=== PATIENT | female | born 1980 | race African-American/Black ===

== ENCOUNTER 2016-10-22 14:06 | Emergency (ER) | payer OTHER ==
[2016-10-22 14:17] VITALS: BP 102/60; PULSE 75; TEMP 98.1
[2016-10-22] MEDS ORDERED: IBUPROFEN 600 MG TABLET (FP) PO ONE ×2 (15:09→15:12)
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
== END 2016-10-22 15:57 | disposition home or self-care (01) ==
LOC: JERFT 14:06
DX: T14.8 Other injury of unspecified body region (principal); V43.52XA Car driver injured in collision with other type car in traffic accident, initial encounter; Y93.89 Activity, other specified; Y92.410 Unspecified street and highway as the place of occurrence of the external cause
CPT/HCPCS: 99281-25

== ENCOUNTER 2017-01-21 10:17 | Emergency (ER) | payer OTHER ==
[2017-01-21 10:25] VITALS: BP 113/63; PULSE 89; TEMP 97.9; BMI 21.6
--- NOTE | 2017-01-21 12:01 | PDOC ---
History of Present Illness - General Chief Complaint: Cold Symptoms Stated Complaint: RESPIRATORY Time Seen by Provider: 01/21/17 10:57 History Source: Patient Exam Limitations: No Limitations - History of Present Illness Initial Comments: 01/21/17 12:09 Chief complaint: Nasal congestion with runny nose History of present illness: Patient is a 36-year-old female with no significant medical history here today complaining of severe nasal congestion with clear rhinorrhea for the last few days. Patient denies any fever, any sore throat, postnasal drip, or any cough. Patient has been using qoyh-ttt-yzguwyl medication for nasal congestion without relief Advil sinus and con RX out relief of symptoms. Patient denies any recent travel. Patient denies any sick contacts with similar symptoms. Timing/Duration: getting worse Severity: severe (nasal congestion) Past History - Past Medical History Allergies/Adverse Reactions: Allergies Allergy/AdvReac Type Severity Reaction Status Date / Time No Known Allergies Allergy Verified 01/21/17 10:24 Home Medications: Ambulatory Orders Fluticasone Propionate [Flonase Allergy Relief] 2 spray NS DAILY #1 spray.susp 01/21/17 Pseudoephedrine HCl [Sudafed 12 Hour] 120 mg PO Q12H PRN #20 tablet.er 01/21/17 Asthma: No Cancer: No Cardiac Disorders: No COPD: No Diabetes: No HTN: No Seizures: No Thyroid Disease: No Other medical history: denies - Suicide/Smoking/Psychosocial Hx Smoking Status: Yes Smoking History: Never smoked Number of Cigarettes Smoked Daily: 2 Information on smoking cessation initiated: Yes 'Breaking Loose' booklet given: 01/21/17 Hx Alcohol Use: No Drug/Substance Use Hx: No Substance Use Type: None Hx Substance Use Treatment: No Review of Systems - Review of Systems Able to Perform ROS?: Yes Constitutional: No: Symptoms Reported HEENTM: Yes: Nose Congestion (b/l ) Respiratory: No: Symptoms reported Cardiac (ROS): No: Symptoms Reported ABD/GI: No: Symptoms Reported : No: Symptoms Reported Musculoskeletal: No: Symptoms Reported Integumentary: No: Symptoms Reported Neurological: No: Symptoms reported *Physical Exam - Vital Signs Last Vital Signs Temp Pulse Resp BP Pulse Ox 97.9 F 89 18 113/63 100 01/21/17 10:23 01/21/17 10:23 01/21/17 10:23 01/21/17 10:23 01/21/17 10:23 - Physical Exam General Appearance: Yes: Appropriately Dressed HEENT: positive: TMs Normal, Nasal Congestion (superior turbinate edema b/l ), Rhinorrhea (clear ). negative: Sinus Tenderness Neck: negative: Lymphadenopathy (R), Lymphadenopathy (L) Respiratory/Chest: positive: Lungs Clear, Normal Breath Sounds. negative: Chest Tender, Respiratory Distress Cardiovascular: positive: Regular Rhythm, Regular Rate, S1, S2 Integumentary: positive: Normal Color Neurologic: positive: Alert Medical Decision Making - Medical Decision Making 01/21/17 12:11 Patient is a 36-year-old female with no significant medical history here today complaining of severe nasal congestion with clear rhinorrhea for the last few days. Patient denies any fever, any sore throat, postnasal drip, or any cough. Patient has been using eckr-ywv-vlzxorm medication for nasal congestion without relief Advil sinus and con RX out relief of symptoms. Patient denies any recent travel. Patient denies any sick contacts with similar symptoms. She reports that she gets nasal congestion generally at the end of November not in January in the past due to seasonal allergies. Severe nasal congestion PLAN: Sudafed 12 hrs 1 tab q 12 hr prn nasal congestion flonase 2 sprays each nostril daily follow up with Dr. Pierre *DC/Admit/Observation/Transfer Diagnosis at time of Disposition: Nasal congestion - Discharge Dispostion Disposition: HOME Condition at time of disposition: Stable - Referrals Referrals: Bina Anderson MD [Primary Care Provider] - Jose Guadalupe Pierre MD [Staff Physician] - - Patient Instructions Additional Instructions: You may put towel over head stand over her sink turn on hot water breathing in moist warm air Follow up with ear nose and throat Dr. Pierre if symptoms worsen or return to emergency room if any symptoms worsen or new symptoms develop any fever or sinus pain Patient voiced understanding of discharge instructions and all questions were answered and thank you for choosing [facility] emergency room for your medical needs today - Post Discharge Activity
== END 2017-01-21 12:21 | disposition home or self-care (01) ==
LOC: JERFT 10:17
DX: J34.89 Other specified disorders of nose and nasal sinuses (principal)
CPT/HCPCS: 99281-25

== ENCOUNTER 2017-08-02 09:32 | Emergency (ER) | payer SELFPAY ==
[2017-08-02 09:51] VITALS: BP 103/58; PULSE 73; TEMP 98.4; BMI 21.6
--- NOTE | 2017-08-02 10:13 | PDOC ---
History of Present Illness - General Chief Complaint: Lightheaded Stated Complaint: DIZZINESS Time Seen by Provider: 08/02/17 09:54 History Source: Patient Exam Limitations: No Limitations - History of Present Illness Initial Comments: 08/02/17 10:54 Patient came to emergency department with intermittent dizziness over the past 2 days. feels lightheaded and not necessarily vertiginous. Denies headache pain numbness or tingling to hands or feet, no history of neurologic disorders. Has no history of headaches, eyes weakness on one or both sides. No visual changes, feels thinking is clear. does not drink alcohol but is a regular marijuana smoker, has no changes in the supplier nor concerned about any tainted product/K2. Has no nausea vomiting or diarrhea constipation associated with this lihgtheadedness, has been eating well until yesterday when her appetite remained due to this lightheadedness. diet has not been as healthy and has eaten many sugars and carbs, had worries about hyperglycemia. Family members suffer from diabetes. Patient denies recent illness including cough, shortness of breath, ear or throat pain, urine infections/dysuria, or any vaginal complaints. Timing/Duration: unsure, 24 hours Severity: mild, moderate Associated Symptoms: denies: chest pain, cough, fever/chills, headaches, loss of appetite, malaise, nausea/vomiting, syncope, weakness Past History - Travel Traveled outside of the country in the last 30 days: No Close contact w/someone who was outside of country & ill: No - Past Medical History Allergies/Adverse Reactions: Allergies Allergy/AdvReac Type Severity Reaction Status Date / Time No Known Allergies Allergy Verified 08/02/17 09:48 Home Medications: Ambulatory Orders NK [No Known Home Medication] 08/02/17 Asthma: No Cancer: No Cardiac Disorders: No COPD: No Diabetes: No HTN: No Seizures: No Thyroid Disease: No Other medical history: DENIES. - Suicide/Smoking/Psychosocial Hx Smoking Status: Yes Smoking History: Current every day smoker Have you smoked in the past 12 months: Yes Number of Cigarettes Smoked Daily: 10 Information on smoking cessation initiated: No 'Breaking Loose' booklet given: 01/21/17 Hx Alcohol Use: No Drug/Substance Use Hx: No Substance Use Type: None Hx Substance Use Treatment: No Review of Systems - Review of Systems Able to Perform ROS?: Yes Is the patient limited Italian proficient: Yes Constitutional: Yes: Symptoms Reported, See HPI, Malaise HEENTM: Yes: See HPI. No: Symptoms Reported, Eye Pain, Nose Congestion, Throat Pain Respiratory: Yes: See HPI. No: Symptoms reported, Cough, Shortness of Breath, Wheezing Cardiac (ROS): Yes: See HPI. No: Symptoms Reported ABD/GI: Yes: See HPI. No: Symptoms Reported Integumentary: No: Symptoms Reported Neurological: Yes: Symptoms reported, See HPI, Weakness (lightheaded). No: Headache All Other Systems: Reviewed and Negative *Physical Exam - Vital Signs Last Vital Signs Temp Pulse Resp BP Pulse Ox 98.4 F 73 19 103/58 100 08/02/17 09:48 08/02/17 09:48 08/02/17 09:48 08/02/17 09:48 08/02/17 09:48 - Physical Exam General Appearance: Yes: Nourished, Appropriately Dressed. No: Apparent Distress HEENT: positive: SEVEN, Normal ENT Inspection, TMs Normal, Pharynx Normal Neck: positive: Supple. negative: Tender, Lymphadenopathy (R), Lymphadenopathy (L) Respiratory/Chest: positive: Lungs Clear, Normal Breath Sounds Cardiovascular: positive: Regular Rate Gastrointestinal/Abdominal: positive: Normal Bowel Sounds, Soft. negative: Tender Musculoskeletal: positive: Normal Inspection. negative: CVA Tenderness Extremity: positive: Normal Capillary Refill, Normal Inspection, Normal Range of Motion Integumentary: positive: Normal Color, Dry, Warm Neurologic: positive: painter barrel II-XII NML intact, Fully Oriented, Alert, Normal Mood/ Affect, Normal Response (ambulatory without unsteadiness), Motor Strength 5/5 ED Treatment Course - LABORATORY CBC & Chemistry Diagram: 08/02/17 10:22 08/02/17 10:22 Medical Decision Making - Medical Decision Making 08/02/17 12:02 Much improved after liter of IV fluid *DC/Admit/Observation/Transfer Diagnosis at time of Disposition: Viral illness - Discharge Dispostion Disposition: HOME Condition at time of disposition: Stable Decision to Admit order: No - Referrals - Patient Instructions Printed Discharge Instructions: DI for Dehydration -- Adult Additional Instructions: Rest, drink lots of fluids: Teas, water, soups Avoid contact with others until fevers and symptoms resolved Lots of handwashing and good hygiene Continue hntn-aua-hbaoebu medications for symptomatic relief Tylenol or Motrin for fever and pain Followup with private physician in one to 2 days as needed Return to emergency department for worsened symptoms, fevers, dehydration - Post Discharge Activity
[2017-08-02 10:41] LABS: BASO % 0.5 % (0-2.0); EOS % 0.7 % (0-4.5); HEMATOCRIT 35.4 % (32.4-45.2); LYMPH % 24.2 % (8-40); MCH 33.4 pg (25.7-33.7); MCHC 33.8 g/dl (32.0-36.0); MEAN CELL VOLUME 98.8 fl (80-96); MEAN PLT VOLUME 6.7 fl (7.5-11.1); MONO % 5.9 % (3.8-10.2); NEUT % 68.7 % (42.8-82.8); PLATELET COUNT 295 K/MM3 (134-434); RBC 3.58 M/mm3 (3.60-5.2); RDW 12.4 % (11.6-15.6); WHITE BLOOD COUNT 15.7 K/mm3 (4.0-10.0)
[2017-08-02 10:47] LABS: HCG,QUALITATIVE URINE NEGATIVE
[2017-08-02] MEDS ORDERED: SODIUM CHLORIDE 1,000 ML IV SCH (11:15)
[2017-08-02 11:23] LABS: ALBUMIN 3.7 g/dl (3.4-5.0); ALK PHOS 74 U/L (45-117); ANION GAP 5 (8-16); BILIRUBIN,TOTAL 0.4 mg/dL (0.2-1.0); BLOOD UREA NITROGEN 8 mg/dL (7-18); CALCIUM 8.3 mg/dL (8.5-10.1); CHLORIDE 106 mmol/L (98-107); CO2 28 mmol/L (21-32); CREATININE 0.8 mg/dL (0.55-1.02); GLUCOSE,RANDOM 85 mg/dL (74-106); POTASSIUM 4.3 mmol/L (3.5-5.1); SGOT/AST 11 U/L (15-37); SGPT/ALT 13 U/L (12-78); SODIUM 139 mmol/L (136-145); TOT PROT 6.8 g/dl (6.4-8.2)
[2017-08-02 11:55] LABS: URINE APPEARANCE SLCLOUDY; URINE BILIRUBIN NEGATIVE (<2.0 mg/dL); URINE COLOR YELLOW; URINE GLUCOSE (UA) NEGATIVE (NEGATIVE); URINE KETONE NEGATIVE (NEGATIVE); URINE LEUK ESTERASE NEGATIVE (NEGATIVE); URINE NITRITE NEGATIVE (NEGATIVE); URINE PROTEIN NEGATIVE (NEGATIVE); URINE UROBILINOGEN 4.0 E.U/dl mg/dL (0.2-1.0)
== END 2017-08-02 12:21 | disposition home or self-care (01) ==
LOC: JER 09:32
PROC: 3E0337Z Introduction of Electrolytic and Water Balance Substance into Peripheral Vein, Percutaneous Approach (ICD-10-PCS; principal; 2017-08-02)
DX: B34.9 Viral infection, unspecified (principal); E86.0 Dehydration
CPT/HCPCS: 36415; 80053; 81003; 84703; 85025; 99283-25; J7030

== ENCOUNTER 2019-02-12 19:10 | Emergency (ER) | payer OTHER ==
[2019-02-12 19:48] VITALS: BP 113/73; PULSE 97; TEMP 99.5; BMI 19.5
--- NOTE | 2019-02-12 20:03 | PDOC ---
*Physical Exam - Vital Signs Last Vital Signs Temp Pulse Resp BP Pulse Ox 99.5 F 97 H 19 113/73 96 02/12/19 19:38 02/12/19 19:38 02/12/19 19:38 02/12/19 19:38 02/12/19 19:38 ED Treatment Course - LABORATORY CBC & Chemistry Diagram: 02/12/19 21:00 02/12/19 21:00 Medical Decision Making - Medical Decision Making 02/12/19 20:03 Patient seen by the advanced practice provider under my direct supervision. Ancillary testing reviewed as necessary. I agree with plan as outlined by the advanced practice provider. Discharge - Discharge Information Problems reviewed: Yes Clinical Impression/Diagnosis: Abdominal pain Disposition: ELOPED - Follow up/Referral CallBack Reminder: Sono results - Patient Discharge Instructions - Post Discharge Activity
[2019-02-12] MEDS ORDERED: SODIUM CHLORIDE 1,000 ML IV STA (20:38)
[2019-02-12] MEDS ORDERED: ACETAMINOPHEN 1000 MG/100 ML VIAL (NON FORMULARY) IVPB ONE (20:40)
--- NOTE | 2019-02-12 20:40 | PDOC ---
History of Present Illness - General Chief Complaint: Pain Stated Complaint: ABD/DISCOMFORT Time Seen by Provider: 02/12/19 20:01 History Source: Patient Exam Limitations: No Limitations - History of Present Illness Travel History: No Initial Comments: 02/12/19 20:34 HISTORY OF PRESENT ILLNESS: 38-year-old woman denies medical history presents to the emergency department for evaluation of continued abdominal pain for 5 days. Patient reports she was seen and evaluated at [facility] was given a CAT scan was found to have colitis. Patient discharged yesterday on oral Cipro and Flagyl. Patient is concerned that she is exhibiting loose brown stools with blood. Patient denies any nausea or vomiting and is able to tolerate food and liquid. She denies any fevers or chills. She reports the pain is constant cramping sensation 8/10 reports it is throughout her abdomen. No recent travel or sick contacts. PAST MEDICAL HISTORY: Denies past medical history SURGICAL HISTORY: Denies ALLERGIES: No known drug allergies REVIEW OF SYSTEMS General/Constitutional: Denies fever or chills. Denies weakness, weight change. HEENT: Denies change in vision. Denies ear pain or discharge. Denies sore throat. Cardiovascular: Denies chest pain or shortness of breath. Respiratory: Denies cough, wheezing, or hemoptysis. Gastrointestinal: See HPI Genitourinary: Denies dysuria, frequency, or change in urination. Musculoskeletal: Denies joint or muscle swelling or pain. Denies neck or back pain. Skin and breasts: Denies rash or easy bruising. Neurologic: Denies headache, vertigo, loss of consciousness, or loss of sensation. Psychiatric: Denies depression or anxiety. Endocrine: Denies increased thirst. Denies abnormal weight change. Hematologic/Lymphatic: Denies anemia, easy bleeding, or history of blood clots. Allergic/Immunologic: Denies hives or skin allergy. Denies latex allergy. PHYSICAL EXAM General Appearance: Well-appearing, appropriately dressed. No apparent distress , no intoxication. Respiratory/Chest: Lungs CTAB. No shortness of breath, chest tenderness, respiratory distress, accessory muscle use. No crackles, rales, rhonchi, stridor , wheezing, dullness Cardiovascular: RRR. S1, S2. No JVD, murmur, bradycardia, tachycardia. Vascular Pulses: Dorsalis-Pedis (R): 2+, Dorsalis-Pedis (L): 2+ Gastrointestinal/Abdominal: Normal bowel sounds. Abdomen soft, non-distended. Diffuse tenderness throughout abdomen with guarding. Pain and guarding worse in the right upper quadrant. No rebound tenderness. No organomegaly, pulsatile mass, hernia, hepatomegaly, splenomegaly. Lymphatic: No adenopathy, tenderness. Past History - Past Medical History Allergies/Adverse Reactions: Allergies Allergy/AdvReac Type Severity Reaction Status Date / Time No Known Allergies Allergy Verified 08/02/17 09:48 Home Medications: Ambulatory Orders NK [No Known Home Medication] 08/02/17 Asthma: No Cancer: No Cardiac Disorders: No COPD: No Diabetes: No HTN: No Seizures: No Thyroid Disease: No - Psycho Social/Smoking Cessation Hx Smoking Status: Yes Smoking History: Never smoked Have you smoked in the past 12 months: No Number of Cigarettes Smoked Daily: 10 Information on smoking cessation initiated: No 'Breaking Loose' booklet given: 01/21/17 Hx Alcohol Use: No Drug/Substance Use Hx: Yes (teresauna) Substance Use Type: None Hx Substance Use Treatment: No *Physical Exam - Vital Signs Last Vital Signs Temp Pulse Resp BP Pulse Ox 99.5 F 97 H 19 113/73 96 02/12/19 19:38 02/12/19 19:38 02/12/19 19:38 02/12/19 19:38 02/12/19 19:38 ED Treatment Course - LABORATORY CBC & Chemistry Diagram: 02/12/19 21:00 02/12/19 21:00 Medical Decision Making - Medical Decision Making 02/12/19 20:40 A/P: 38-year-old woman with known colitis being treated with Cipro and Flagyl with continued abdominal pain now worse in the right upper quadrant Diffuse abdominal tenderness with guarding worse in the right upper quadrant No rebound tenderness noted Negative Velázquez sign Labs including lipase Right upper quadrant ultrasound Normal saline 1 L IV bolus Tylenol 1 g IV Reassess 02/12/19 23:09 Ultrasound is read by Dr. Ngo: Gallbladder sludge without thickening of its wall. Production Support Analyst reports a positive Velázquez sign. Further evaluation is needed to rule out acute cholecystitis. No gross gallstones are identified. Small amount of free fluid/ascites in the right upper abdomen including Morison' s pouch of uncertain etiology. Patient left the emergency department prior to ultrasound read. Laboratory testing notable for WBC 15.3 without shift Chemistries were hemolyzed and patient refused repeat lab draws Attempt to contact patient on her cell phone were unsuccessful. Will leave callback reminder in chart have patient called in the morning return for evaluation. Discharge - Discharge Information Problems reviewed: Yes Clinical Impression/Diagnosis: Abdominal pain, Eloped from emergency department Disposition: ELOPED - Follow up/Referral CallBack Reminder: Sono results - Patient Discharge Instructions - Post Discharge Activity
[2019-02-12] MEDS ORDERED: ACETAMINOPHEN INJECTION 100 ML IVPB ONE (20:41)
[2019-02-12 21:23] LABS: BASO % 0.5 % (0-2.0); EOS % 1.1 % (0-4.5); HEMATOCRIT 33.1 % (32.4-45.2); HEMOGLOBIN 11.2 GM/dL (10.7-15.3); LYMPH % 11.2 % (8-40); MCH 33.7 pg (25.7-33.7); MEAN CELL VOLUME 99.2 fl (80-96); MONO % 16.3 % (3.8-10.2); NEUT % 70.9 % (42.8-82.8); PLATELET COUNT 413 K/MM3 (134-434); RBC 3.33 M/mm3 (3.60-5.2); RDW 13.8 % (11.6-15.6); WHITE BLOOD COUNT 15.3 K/mm3 (4.0-10.0)
[2019-02-12 22:19] LABS: ANISOCYTOSIS 0; MACROCYTOSIS 0; PLATELET ESTIMATE NORMAL
== END 2019-02-13 00:01 | disposition left against medical advice (07) ==
LOC: JER 19:10
DX: R10.9 Unspecified abdominal pain (principal)
CPT/HCPCS: 36415; 76705-TC; 85025; 99282-25

== ENCOUNTER 2021-06-01 12:27 | Emergency (ER) | payer OTHER ==
[2021-06-01 12:37] VITALS: BP 96/57; PULSE 77; TEMP 98.2; BMI 21.6
[2021-06-01] MEDS ORDERED: KETOROLAC TROMETHAMINE 60 MG/2 ML VIAL ONE (12:59)
[2021-06-01] MEDS ORDERED: KETOROLAC TROMETHAMINE 60 MG/2 ML VIAL IM ONE (12:59)
[2021-06-01 14:56] LABS: METHADONE, UR NEGATIVE (NEGATIVE); PHENCYCLIDINE,URINE NEGATIVE (NEGATIVE); URINE BARBITURATES NEGATIVE (NEGATIVE); URINE BENZODIAZEPINES NEGATIVE (NEGATIVE)
[2021-06-01 14:58] LABS: COCAINE, UR NEGATIVE (NEGATIVE); OPIATES, URI POSITIVE (NEGATIVE); URINE AMPHETAMINES NEGATIVE (NEGATIVE)
== END 2021-06-01 13:10 | disposition home or self-care (01) ==
LOC: JERFT 12:27
PROC: 3E023GC Introduction of Other Therapeutic Substance into Muscle, Percutaneous Approach (ICD-10-PCS; principal; 2021-06-01)
DX: M54.50 Low back pain, unspecified (principal)
CPT/HCPCS: 80307; 99284-25

== ENCOUNTER 2022-12-24 10:22 | Emergency (ER) | payer OTHER ==
[2022-12-24 10:33] VITALS: BP 124/71; PULSE 63; RESP 20; TEMP 97.8; BMI 21.6
[2022-12-24] MEDS ORDERED: ACETAMINOPHEN 1000 MG/100 ML BAG IVPB ONE (10:56)
[2022-12-24] MEDS ORDERED: ACETAMINOPHEN INJECTION 100 ML IVPB ONE ×2 (11:19→11:24)
[2022-12-24 11:48] LABS: BASO % 0.5 % (0-2.0); EOS % 0.6 % (0-4.5); HEMATOCRIT 38.5 % (32.4-45.2); HEMOGLOBIN 13.7 GM/dL (10.7-15.3); LYMPH % 16.5 % (8-40); MCH 34.4 pg (25.7-33.7); MCHC 35.6 g/dl (32.0-36.0); MEAN CELL VOLUME 96.7 fl (80-96); MEAN PLT VOLUME 6.2 fl (7.5-11.1); MONO % 5.8 % (3.8-10.2); NEUT % 76.6 % (42.8-82.8); PLATELET COUNT 428 10^3/uL (134-434); RBC 3.98 M/mm3 (3.60-5.2); RDW 12.8 % (11.6-15.6); WHITE BLOOD COUNT 17.8 K/mm3 (4.0-10.0)
[2022-12-24 12:13] LABS: POTASSIUM 4.1 mmol/L (3.5-5.1)
[2022-12-24 12:16] LABS: BLOOD UREA NITROGEN 6.6 mg/dL (7-18); CALCIUM 8.8 mg/dL (8.5-10.1)
[2022-12-24 12:19] LABS: CREATININE 0.8 mg/dL (0.55-1.3)
[2022-12-24 12:21] LABS: BILIRUBIN,TOTAL 0.4 mg/dL (0.2-1); TOT PROT 7.7 g/dl (6.4-8.2)
[2022-12-24] MEDS ORDERED: SODIUM CHLORIDE 0.9% 500 ML INFUS.BAG IV ONE (13:49)
[2022-12-24 14:03] LABS: EPI CELLS 17 /uL (0-25.1); HYALINE CASTS 1 /uL (0-3.1); PH,URINE 5.5 (5.0-8.0); URINE APPEARANCE CLEAR; URINE BACTERIA 25 /uL (0-1359); URINE BILIRUBIN NEGATIVE (NEGATIVE); URINE COLOR YELLOW; URINE GLUCOSE (UA) NEGATIVE (NEGATIVE); URINE KETONE NEGATIVE (NEGATIVE); URINE LEUK ESTERASE NEGATIVE (NEGATIVE); URINE NITRITE NEGATIVE (NEGATIVE); URINE PROTEIN NEGATIVE (NEGATIVE); URINE RBC 22 /uL (0-23.9); URINE UROBILINOGEN 0.2 mg/dL (0.2-1.0); URINE WBC 23 /uL (0-25.8)
[2022-12-24 14:16] LABS: YEAST 1+ (NEGATIVE)
[2022-12-24 15:34] LABS: HEMATOCRIT 33.8 % (32.4-45.2); HEMOGLOBIN 11.2 GM/dL (10.7-15.3); MCHC 33.3 g/dl (32.0-36.0); MEAN CELL VOLUME 99.1 fl (80-96); MEAN PLT VOLUME 6.7 fl (7.5-11.1); PLATELET COUNT 377 10^3/uL (134-434); RBC 3.41 M/mm3 (3.60-5.2); RDW 12.5 % (11.6-15.6); WHITE BLOOD COUNT 15.3 K/mm3 (4.0-10.0)
== END 2022-12-24 16:05 | disposition home or self-care (01) ==
LOC: JER 10:22
PROC: 3E033NZ Introduction of Analgesics, Hypnotics, Sedatives into Peripheral Vein, Percutaneous Approach (ICD-10-PCS; principal; 2022-12-24)
DX: N93.9 Abnormal uterine and vaginal bleeding, unspecified (principal); R10.30 Lower abdominal pain, unspecified; R11.10 Vomiting, unspecified; R05.9 Cough, unspecified; Z20.822 Contact with and (suspected) exposure to COVID-19
CPT/HCPCS: 0241U-QW; 36415; 76830-TC; 80053; 81003; 83690; 84703; 85025; 85027; 86850; 86900; 86901; 99284-25